=== PATIENT | male | born 1985 | race African-American/Black ===

== ENCOUNTER 2020-12-28 11:27 | Inpatient (IN) | payer BC, OTHER, SELFPAY ==
[~2020-12-28 11:27] MED LIST: Iopamidol-370 76% 500 ML 1 ML ONE
[2020-12-28] MEDS ORDERED: Boostrix 0.5 ML (Tdap) VIAL ONE (11:32)
[2020-12-28] MEDS ORDERED: Propofol 1,000 MG/100 ML VIAL IV ONE ×2 (11:37→17:42)
[2020-12-28 11:54] LABS: Hemoglobin 13.6 g/dL (14.0-18.0); Mean Corpuscular HGB CONC 32.1 g/dL (32.0-36.0); Mean Corpuscular Hemoglobin 23.8 pg (27.0-31.0); Mean Platelet Volume 9.4 fL (7.4-10.4); Platelet Count 216 thou/uL (130-400); RBC Distribution Width 14.9 % (11.5-14.5); Red Blood Cell (RBC) Count 5.71 mill/uL (4.70-6.10)
[2020-12-28 12:06] LABS: Prothrombin Time 13.1 sec (12.0-14.7)
[2020-12-28] MEDS ORDERED: Dextrose 50% Abboject 50 ML SYRINGE SLOW IVP PRN (12:07)
[2020-12-28] MEDS ORDERED: HumaLOG 300 UNITS/3 ML VIAL SC PRN (12:07)
[2020-12-28] MEDS ORDERED: hydrALAZINE 20 MG/ML VIAL SLOW IVP PRN (12:07)
[2020-12-28] MEDS ORDERED: Dextrose 5% in Water 1,000 ML IV PRN (12:07)
[2020-12-28] MEDS ORDERED: Ondansetron PF 4 MG/2 ML Vial IVP PRN (12:07)
[2020-12-28] MEDS ORDERED: fentaNYL Citrate/PF 2,000 MCG in Sodium Chloride 0.9% 60 ML IV PRN (12:09)
[2020-12-28 12:10] LABS: Amphetamine Not Detected (NotDetected); Barbiturates Screen Not Detected (NotDetected); Benzodiazepine Screen Not Detected (NotDetected); Cocaine Metabolite Screen Not Detected (NotDetected); Methadone Not Detected (NotDetected); Methamphetamine Not Detected (NotDetected); Opiate Screen Not Detected (NotDetected); Oxycodone Screen Not Detected (NotDetected); Phencyclidine (PCP) Not Detected (NotDetected); THC/Cannabinoid Screen Detected (NotDetected); Tricyclic Screen Not Detected (NotDetected)
[2020-12-28 12:16] LABS: Band 2 % (5-11); Eosinophils 1 % (0-10); Lymphocytes 15 % (21-51); MDiff Complete? YES; Monocytes 6 % (0-10); Neutrophil 76 % (42-75); Platelet Morphology Comment Appears Adequate
[2020-12-28 12:17] LABS: RBC Morphology Normal
[2020-12-28 12:37] LABS: Albumin 3.9 g/dL (3.5-5.0)
[2020-12-28 12:38] LABS: Chloride 107 mmol/L (98-107); Potassium 3.9 mmol/L (3.5-5.1); Sodium 140 mmol/L (136-145)
[2020-12-28 12:39] LABS: Actual Bicarbonate (HCO3a) 21.8 mEq/L (22-28); Analyzer IN Cardio ER; Base Excess (BEa) -3.6 mEq/L (-2.0 to +3.0); CO2 Tension 40.8 mmHg (35.0-45.0); Calcium, Ionized (arterial) 1.17 mmol/L (1.12-1.30); Carboxyhemoglobin (COHb) 0.9 gm% (0.0-3.0); O2 Tension (PaO2), arterial 356.1 mmHg (80.0-100.0); Potassium - ABG Lab 3.76 mmol/L (3.70-5.30); pH, Arterial 7.35 (7.35-7.45)
[2020-12-28 12:39] LABS: Calcium 9.1 mg/dL (7.8-10.44)
[2020-12-28 12:40] LABS: Puncture Site RBA
[2020-12-28 12:40] LABS: Globulin 2.7 g/dL (2.4-3.5); Protein, Total 6.6 g/dL (6.0-8.3)
[2020-12-28] MEDS ORDERED: Fentanyl 100 MCG/2 ML VIAL ONE (12:40)
[2020-12-28 12:41] LABS: Alcohol Less than 10 mg/dL (Less than 10); Anion Gap 13 mmol/L (10-20); Bilirubin, Total 0.4 mg/dL (0.2-1.2); Carbon Dioxide 24 mmol/L (22-29)
[2020-12-28 12:42] LABS: Alkaline Phosphatase 58 U/L (40-110)
[2020-12-28 12:43] LABS: Calc. Creatinine Clearance 0 mL/min (70-130)
[2020-12-28 12:44] LABS: Acetaminophen Less than 6.0 mcg/mL (10.0-30.0); BUN (Urea Nitrogen) 15 mg/dL (8.9-20.6); Salicylate Less than 8.0 mg/dL (15.0-30.0)
[2020-12-28 12:45] LABS: ALT (SGPT) 84 U/L (8-55); AST (SGOT) 42 U/L (5-34)
[2020-12-28] MEDS ORDERED: Lidocaine 4% Cream 5 GM TUBE w/ Tegaderm ONE ×3 (13:04→13:06)
[2020-12-28] MEDS ORDERED: Lidocaine 1% w/Epinephrine 1:100K 20 ML VIAL ONE (13:04)
[2020-12-28] MEDS ORDERED: Bacitracin 1 PK ONE (13:13)
[2020-12-28 13:14] LABS: Glucose 168 mg/dL (70-105)
[2020-12-28 13:16] LABS: CKMB 7.1 ng/mL (0-6.6)
[2020-12-28 14:00] LABS: Bacteria/HPF None Seen HPF (None Seen); Bilirubin Negative (Negative); Blood, Urine 1+ (Negative); Clarity Clear (Clear); Glucose, Urine (Dipstick) Normal (Negative); Ketone, Urine Trace mg/dL (Negative); Leukocyte Negative Leu/uL (Negative); Nitrite Negative (Negative); Protein, Urine (Dipstick) 50 mg/dL (Neg-Trace); RBC/HPF 0-3 HPF (0-3); Specific Gravity, Urine 1.023 (1.002-1.036); Squamous Epithelial None Seen HPF (0-3); Urobilinogen Normal mg/dL (Less than 2); WBC/HPF 0-3 HPF (0-3); pH, Urine 5.5 (5.0-9.0)
[2020-12-28 14:03] LABS: SARS-CoV-2 NAA Rapid Test Not Detected (NotDetected)
[2020-12-28 14:17] LABS: Lactic Acid 2.1 mmol/L (0.5-2.2)
[2020-12-28] MEDS ORDERED: Electrolyte Replacement Protocol 1 EACH FS PRN (15:02)
[2020-12-28] MEDS ORDERED: Ventilator Sedation Protocol 1 EACH FS ONE (15:02)
[2020-12-28] MEDS ORDERED: Morphine 2 MG/ML VIAL SLOW IVP PRN (15:15)
[2020-12-28] MEDS ORDERED: Propofol BOLUS 1,000 MG/100 ML VIAL IV PRN (15:15)
[2020-12-28] MEDS ORDERED: Lorazepam 2 MG/ML VIAL SLOW IVP PRN ×2 (15:15→15:24)
[2020-12-28] MEDS ORDERED: Fentanyl CADD 100 ML IV SCH (15:15)
[2020-12-28] MEDS ORDERED: Fentanyl BOLUS 250 ML IVPB PRN (15:15)
[2020-12-28] MEDS ORDERED: DISCONTINUE PREVIOUS NARCOTIC PAIN MEDICATIONS AND BENZODIAZEPINES FS SCH (15:15)
[2020-12-28 16:09] LABS: Lactic Acid 2.1 mmol/L (0.5-2.2)
[2020-12-28] MEDS ORDERED: levETIRAcetam in NS 1,000 MG in Premix Bag 1 BAG IVPB SCH ×2 (16:21→21:00)
[2020-12-28] MEDS ORDERED: levETIRAcetam in NS 100 ML ONE (17:25)
[2020-12-28] MEDS: Sodium Chloride 0.9% 1,000 ML IV SCH ×2 (20:19→21:00)
[2020-12-28] MEDS: Famotidine/PF 20 mg/2ml Vial SLOW IVP SCH (20:32)
[2020-12-28 20:35] LABS: Troponin I 1.013 ng/mL (< 0.028)
[2020-12-28] MEDS ORDERED: Acetaminophen 650 MG/20.3 ML UDCUP PER TUBE PRN (22:42)
[2020-12-28] MEDS ORDERED: Aspirin 325 MG TAB PER TUBE SCH (22:45)
[2020-12-28 23:37] LABS: Critical Call Chem Troponin I RESULT DECREASING; Troponin I 0.619 ng/mL (< 0.028)
[2020-12-28] MEDS: Propofol 1,000 MG/100 ML VIAL IV PRN (23:44)
[2020-12-29] MEDS ORDERED: Sodium Chloride 0.9% 500 ML IV SCH (02:00)
[2020-12-29] MEDS: Sodium Bicarbonate 150 MEQ in Dextrose 5% in Water 1,000 ML IV SCH ×2 (02:44→09:58)
[2020-12-29 04:40] LABS: ALT (SGPT) 69 U/L (8-55); AST (SGOT) 70 U/L (5-34); Albumin 3.4 g/dL (3.5-5.0); Alkaline Phosphatase 45 U/L (40-110); Anion Gap 13 mmol/L (10-20); BUN (Urea Nitrogen) 12 mg/dL (8.9-20.6); Bilirubin, Total 0.5 mg/dL (0.2-1.2); CK (CPK) 2894 U/L (30-200); Calc. Creatinine Clearance 145 mL/min (70-130); Calcium 8.1 mg/dL (7.8-10.44); Carbon Dioxide 21 mmol/L (22-29); Chloride 108 mmol/L (98-107); Globulin 2.5 g/dL (2.4-3.5); Glucose 142 mg/dL (70-105); Potassium 3.5 mmol/L (3.5-5.1); Protein, Total 5.9 g/dL (6.0-8.3); Sodium 138 mmol/L (136-145)
[2020-12-29] MEDS: Sodium Chloride 0.9% 1,000 ML IV SCH (04:41)
[2020-12-29 04:47] LABS: Critical Call Chem Troponin I RESULT DECREASING; Troponin I 0.308 ng/mL (< 0.028)
[2020-12-29 05:10] LABS: #Basophils 0.1 thou/uL (0.0-0.2); #Lymphocytes 1.9 thou/uL (1.20-3.40); #Monocytes 1.1 thou/uL (0.11-0.59); #Neutrophils 13.3 thou/uL (1.40-6.50); %Basophils 0.4 % (0.0-1.0); %Eosinophils 0.2 % (0.0-10.0); %Lymphocytes 11.7 % (21.0-51.0); %Monocytes 6.7 % (0.0-10.0); Band 5 % (5-11); Hemoglobin 12.7 g/dL (14.0-18.0); Lymphocytes 16 % (21-51); MDiff Complete? YES; Mean Corpuscular HGB CONC 32.2 g/dL (32.0-36.0); Mean Corpuscular Volume 74.4 fL (78.0-98.0); Mean Platelet Volume 11.3 fL (7.4-10.4); Microcytosis SLIGHT = 6-15 cells (100X) (0-5/hpf); Monocytes 4 % (0-10); Neutrophil 70 % (42-75); Platelet Count 76 thou/uL (130-400); Platelet Morphology Comment Appears Decreased; RBC Distribution Width 14.8 % (11.5-14.5); Reactive Lymphocytes 5 % (0-10); White Blood Cell (WBC) Count 16.4 thou/uL (4.8-10.8)
[2020-12-29] MEDS: Propofol 1,000 MG/100 ML VIAL IV PRN (05:41)
[2020-12-29] MEDS ORDERED: Fentanyl CADD 100 ML ONE (06:25)
[2020-12-29] MEDS: levETIRAcetam in NS 1,000 MG in Premix Bag 1 BAG IVPB SCH ×2 (06:27→18:35)
[2020-12-29] MEDS ORDERED: Potassium Chloride 40 MEQ in Sodium Chloride 0.9% 250 ML 250 ML IVPB SCH (07:00)
[2020-12-29 07:51] LABS: Actual Bicarbonate (HCO3a) 25.1 mEq/L (22-28); Base Excess (BEa) 2.5 mEq/L (-2.0 to +3.0); CO2 Tension 32.3 mmHg (35.0-45.0); Calcium, Ionized (arterial) 1.08 mmol/L (1.12-1.30); Carboxyhemoglobin (COHb) 0.4 gm% (0.0-3.0); O2 Tension (PaO2), arterial 222.9 mmHg (80.0-100.0); Potassium - ABG Lab 3.16 mmol/L (3.70-5.30); pH, Arterial 7.51 (7.35-7.45)
[2020-12-29 07:52] LABS: ALV-art Gradient 93.225 mmHg (0-20); Puncture Site Y
[2020-12-29] MEDS: Famotidine/PF 20 mg/2ml Vial SLOW IVP SCH ×2 (09:59→20:37)
[2020-12-29] MEDS: Bacitracin Zinc Ointment 30 gm TUBE TOP SCH (10:00)
[2020-12-29] MEDS ORDERED: TETANUS AND DIPHTHERIA TOX/PF 0.5 ML DISP.SYRIN IM ONE (12:07)
[2020-12-29] MEDS: Acetaminophen 500 MG TAB PO SCH ×2 (12:54→17:59)
[2020-12-29] MEDS ORDERED: Lorazepam 2 MG/ML VIAL SLOW IVP PRN (20:08)
[2020-12-29] MEDS ORDERED: Ibuprofen 600 MG TAB PO PRN (20:09)
[2020-12-29] MEDS: Senokot S 8.6-50 MG TAB PO SCH (20:38)
[2020-12-29] MEDS: Enoxaparin Sodium 30 MG/0.3 ML SYRINGE SC SCH (20:38)
[2020-12-30] MEDS: Acetaminophen 500 MG TAB PO SCH ×5 (00:36→23:53)
[2020-12-30] MEDS: Sodium Bicarbonate 150 MEQ in Dextrose 5% in Water 1,000 ML IV SCH (04:15)
[2020-12-30] MEDS: levETIRAcetam in NS 1,000 MG in Premix Bag 1 BAG IVPB SCH ×2 (06:45→18:03)
[2020-12-30 08:38] LABS: #Eosinphils 0.1 thou/uL (0.0-0.7); #Lymphocytes 1.9 thou/uL (1.20-3.40); #Monocytes 0.9 thou/uL (0.11-0.59); #Neutrophils 11.5 thou/uL (1.40-6.50); %Basophils 0.3 % (0.0-1.0); %Eosinophils 0.4 % (0.0-10.0); %Lymphocytes 13.5 % (21.0-51.0); %Monocytes 6.1 % (0.0-10.0); %Neutrophils 79.7 % (42.0-75.0); Mean Corpuscular Hemoglobin 23.2 pg (27.0-31.0); Mean Corpuscular Volume 74.8 fL (78.0-98.0); Mean Platelet Volume 9.1 fL (7.4-10.4); Platelet Count 206 thou/uL (130-400); RBC Distribution Width 14.9 % (11.5-14.5); White Blood Cell (WBC) Count 14.4 thou/uL (4.8-10.8)
[2020-12-30 08:58] LABS: Anion Gap 13 mmol/L (10-20); BUN (Urea Nitrogen) 7 mg/dL (8.9-20.6); Calc. Creatinine Clearance 150 mL/min (70-130); Calcium 9.3 mg/dL (7.8-10.44); Carbon Dioxide 26 mmol/L (22-29); Chloride 104 mmol/L (98-107); Glucose 125 mg/dL (70-105); Potassium 3.6 mmol/L (3.5-5.1); Sodium 139 mmol/L (136-145)
[2020-12-30] MEDS: Enoxaparin Sodium 30 MG/0.3 ML SYRINGE SC SCH ×2 (09:05→21:27)
[2020-12-30] MEDS: Bacitracin Zinc Ointment 30 gm TUBE TOP SCH (09:05)
[2020-12-30] MEDS: Famotidine 20 MG TAB PO SCH ×2 (09:06→21:27)
[2020-12-30] MEDS: Senokot S 8.6-50 MG TAB PO SCH ×2 (09:06→21:27)
[2020-12-30] MEDS: Polyethylene Glycol 3350 17 GM Packet PO SCH (09:06)
[2020-12-30 09:11] LABS: CK (CPK) 5530 U/L (30-200)
[2020-12-30] MEDS ORDERED: Sodium Chloride 0.9% 1,000 ML IV SCH (18:45)
[2020-12-30] MEDS: Sodium Chloride 0.9% 1,000 ML IV SCH (21:30)
[2020-12-31] MEDS: Sodium Chloride 0.9% 1,000 ML IV SCH ×4 (01:00→21:44)
[2020-12-31] MEDS: levETIRAcetam in NS 1,000 MG in Premix Bag 1 BAG IVPB SCH ×2 (05:54→17:56)
[2020-12-31] MEDS: Acetaminophen 500 MG TAB PO SCH ×3 (06:41→17:55)
[2020-12-31 07:13] LABS: Phosphorus 2.5 mg/dL (2.3-4.7)
[2020-12-31 07:20] LABS: Anion Gap 12 mmol/L (10-20); BUN (Urea Nitrogen) 7 mg/dL (8.9-20.6); CK (CPK) 3804 U/L (30-200); Calc. Creatinine Clearance 148 mL/min (70-130); Calcium 8.8 mg/dL (7.8-10.44); Carbon Dioxide 26 mmol/L (22-29); Chloride 107 mmol/L (98-107); Glucose 90 mg/dL (70-105); Magnesium 1.8 mg/dL (1.6-2.6); Potassium 3.9 mmol/L (3.5-5.1); Sodium 141 mmol/L (136-145)
[2020-12-31 08:36] LABS: CKMB 3.2 ng/mL (0-6.6)
[2020-12-31] MEDS ORDERED: Magnesium 2 GM/50 ML 2 GM in Premix Bag 1 BAG IVPB SCH (09:00)
[2020-12-31] MEDS: Enoxaparin Sodium 30 MG/0.3 ML SYRINGE SC SCH ×2 (09:36→21:40)
[2020-12-31] MEDS: Senokot S 8.6-50 MG TAB PO SCH ×2 (09:36→21:42)
[2020-12-31] MEDS: Polyethylene Glycol 3350 17 GM Packet PO SCH (09:38)
[2020-12-31] MEDS: Bacitracin Zinc Ointment 30 gm TUBE TOP SCH (09:38)
[2020-12-31] MEDS: Famotidine 20 MG TAB PO SCH (10:33)
[2021-01-01] MEDS: Acetaminophen 500 MG TAB PO SCH ×5 (00:01→23:11)
[2021-01-01] MEDS: Sodium Chloride 0.9% 1,000 ML IV SCH ×5 (03:05→23:12)
[2021-01-01] MEDS: levETIRAcetam in NS 1,000 MG in Premix Bag 1 BAG IVPB SCH ×2 (05:27→17:38)
[2021-01-01 05:53] LABS: #Basophils 0.1 thou/uL (0.0-0.2); #Eosinphils 0.2 thou/uL (0.0-0.7); #Lymphocytes 1.7 thou/uL (1.20-3.40); #Monocytes 0.8 thou/uL (0.11-0.59); #Neutrophils 4.9 thou/uL (1.40-6.50); %Eosinophils 2.6 % (0.0-10.0); %Lymphocytes 22.3 % (21.0-51.0); %Monocytes 10.2 % (0.0-10.0); %Neutrophils 64.1 % (42.0-75.0); Hemoglobin 10.9 g/dL (14.0-18.0); Mean Corpuscular HGB CONC 32.2 g/dL (32.0-36.0); Mean Corpuscular Hemoglobin 24.1 pg (27.0-31.0); Mean Corpuscular Volume 74.8 fL (78.0-98.0); Mean Platelet Volume 8.5 fL (7.4-10.4); Platelet Count 208 thou/uL (130-400); RBC Distribution Width 14.3 % (11.5-14.5); Red Blood Cell (RBC) Count 4.55 mill/uL (4.70-6.10); White Blood Cell (WBC) Count 7.7 thou/uL (4.8-10.8)
[2021-01-01 06:16] LABS: Anion Gap 10 mmol/L (10-20); BUN (Urea Nitrogen) 9 mg/dL (8.9-20.6); CK (CPK) 3090 U/L (30-200); Calc. Creatinine Clearance 156 mL/min (70-130); Calcium 8.6 mg/dL (7.8-10.44); Carbon Dioxide 26 mmol/L (22-29); Chloride 109 mmol/L (98-107); Glucose 97 mg/dL (70-105); Potassium 3.9 mmol/L (3.5-5.1); Sodium 141 mmol/L (136-145)
[2021-01-01 06:27] LABS: Phosphorus 3.1 mg/dL (2.3-4.7)
[2021-01-01] MEDS: Bacitracin Zinc Ointment 30 gm TUBE TOP SCH (09:05)
[2021-01-01] MEDS: Enoxaparin Sodium 30 MG/0.3 ML SYRINGE SC SCH ×2 (09:08→20:17)
[2021-01-01] MEDS: Senokot S 8.6-50 MG TAB PO SCH ×2 (09:09→20:16)
[2021-01-01] MEDS: Polyethylene Glycol 3350 17 GM Packet PO SCH (09:09)
[2021-01-02] MEDS: Acetaminophen 500 MG TAB PO SCH (05:02)
[2021-01-02] MEDS: Sodium Chloride 0.9% 1,000 ML IV SCH (05:22)
[2021-01-02 05:56] VITALS: BMI 27.6
[2021-01-02 06:17] LABS: #Basophils 0.1 thou/uL (0.0-0.2); #Eosinphils 0.2 thou/uL (0.0-0.7); #Lymphocytes 2.2 thou/uL (1.20-3.40); #Monocytes 0.6 thou/uL (0.11-0.59); %Lymphocytes 27.5 % (21.0-51.0); %Monocytes 7.8 % (0.0-10.0); %Neutrophils 61.7 % (42.0-75.0); Hemoglobin 11.2 g/dL (14.0-18.0); Mean Corpuscular HGB CONC 31.7 g/dL (32.0-36.0); Mean Corpuscular Hemoglobin 23.9 pg (27.0-31.0); Mean Corpuscular Volume 75.4 fL (78.0-98.0); Mean Platelet Volume 8.5 fL (7.4-10.4); Platelet Count 221 thou/uL (130-400); RBC Distribution Width 14.5 % (11.5-14.5); Red Blood Cell (RBC) Count 4.67 mill/uL (4.70-6.10); White Blood Cell (WBC) Count 8.1 thou/uL (4.8-10.8)
[2021-01-02 06:38] LABS: Anion Gap 13 mmol/L (10-20); BUN (Urea Nitrogen) 9 mg/dL (8.9-20.6); CK (CPK) 2460 U/L (30-200); Calc. Creatinine Clearance 166 mL/min (70-130); Calcium 8.5 mg/dL (7.8-10.44); Carbon Dioxide 21 mmol/L (22-29); Chloride 109 mmol/L (98-107); Glucose 97 mg/dL (70-105); Magnesium 1.7 mg/dL (1.6-2.6); Phosphorus 3.4 mg/dL (2.3-4.7); Potassium 3.6 mmol/L (3.5-5.1); Sodium 139 mmol/L (136-145)
[2021-01-02] MEDS ORDERED: levETIRAcetam 500 MG TAB PO SCH (09:00)
[2021-01-02] MEDS: Bacitracin Zinc Ointment 30 gm TUBE TOP SCH (09:16)
[2021-01-02] MEDS: Enoxaparin Sodium 30 MG/0.3 ML SYRINGE SC SCH (09:16)
[2021-01-02] MEDS: Senokot S 8.6-50 MG TAB PO SCH (09:16)
[2021-01-02] MEDS: Polyethylene Glycol 3350 17 GM Packet PO SCH (09:17)
[2021-01-02 11:29] VITALS: BP 153/73; TEMP 98.1
== END 2021-01-02 12:30 | disposition home or self-care (01) | DRG 963 ==
LOC: ERS 11:27 → CCU 11:34 → SURG A 19:04
PROVIDERS: ADMIT Surgery; ATTEND Surgery
PROC: 5A1935Z Respiratory Ventilation, Less than 24 Consecutive Hours (ICD-10-PCS; principal; 2020-12-28)
PROC: 0HQGXZZ Repair Left Hand Skin, External Approach (ICD-10-PCS; 2020-12-28)
PROC: 0HQCXZZ Repair Left Upper Arm Skin, External Approach (ICD-10-PCS; 2020-12-28)
PROC: 0HQEXZZ Repair Left Lower Arm Skin, External Approach (ICD-10-PCS; 2020-12-28)
PROC: 0HQLXZZ Repair Left Lower Leg Skin, External Approach (ICD-10-PCS; 2020-12-28)
PROC: 0HQJXZZ Repair Left Upper Leg Skin, External Approach (ICD-10-PCS; 2020-12-28)
PROC: 0D9670Z Drainage of Stomach with Drainage Device, Via Natural or Artificial Opening (ICD-10-PCS; 2020-12-28)
DX: T79.6XXA Traumatic ischemia of muscle, initial encounter (principal); G92 Toxic encephalopathy; S27.329A Contusion of lung, unspecified, initial encounter; J96.00 Acute respiratory failure, unspecified whether with hypoxia or hypercapnia; S06.0X9A Concussion with loss of consciousness of unspecified duration, initial encounter; F05 Delirium due to known physiological condition; E87.3 Alkalosis; G93.1 Anoxic brain damage, not elsewhere classified; Z20.822 Contact with and (suspected) exposure to COVID-19; Z23 Encounter for immunization; S61.412A Laceration without foreign body of left hand, initial encounter; S41.112A Laceration without foreign body of left upper arm, initial encounter; S51.012A Laceration without foreign body of left elbow, initial encounter; S81.812A Laceration without foreign body, left lower leg, initial encounter; S81.012A Laceration without foreign body, left knee, initial encounter; S71.112A Laceration without foreign body, left thigh, initial encounter; R79.89 Other specified abnormal findings of blood chemistry; R56.9 Unspecified convulsions; F12.10 Cannabis abuse, uncomplicated; T40.7X1A Poisoning by cannabis (derivatives), accidental (unintentional), initial encounter; I08.1 Rheumatic disorders of both mitral and tricuspid valves; S05.02XA Injury of conjunctiva and corneal abrasion without foreign body, left eye, initial encounter; S61.422A Laceration with foreign body of left hand, initial encounter; Y92.410 Unspecified street and highway as the place of occurrence of the external cause; Z78.1 Physical restraint status; V69.9XXA Occupant (driver) (passenger) of heavy transport vehicle injured in unspecified traffic accident, initial encounter
CPT/HCPCS: 36415; 36416; 36600; 70450; 70486; 70551; 71045; 71260; 72125; 72170; 74177; 80048; 80053; 80306; 80307; 81003; 81015; 82550; 82553; 82805; 83605; 83735; 84100; 84146; 84484; 85025; 85610; 85730; 86850; 86900; 86901; 90715; 93005; 93010; 93306; 94002; 94003; 94760; 95712; 95816; 95819; 95957; G0390; J0690; J1650; J1953; J2704; J3010; J3475; J3480; J3490; J7030; J7050; J7070; Q9967; S0028; U0002

== ENCOUNTER 2021-01-04 15:20 | Emergency (ER) | payer SELFPAY | END 2021-01-04 16:42 | disposition home or self-care (01) | LOC: ERS 15:20 | DX: L03.114 Cellulitis of left upper limb (principal); L03.116 Cellulitis of left lower limb; S51.012D Laceration without foreign body of left elbow, subsequent encounter; S71.112D Laceration without foreign body, left thigh, subsequent encounter; S81.812D Laceration without foreign body, left lower leg, subsequent encounter; V69.9XXD Occupant (driver) (passenger) of heavy transport vehicle injured in unspecified traffic accident, subsequent encounter ==